=== PATIENT | female | born 1950 | race Caucasian/White ===

== ENCOUNTER → 2024-05-16 12:08 | Outpatient (REF) | payer OTHER, SELFPAY | LOC: RAD 12:08 | PROVIDERS: ATTENDING PHYSICIAN Internal Medicine Rheumatology; FAMILY PHYSICIAN Family Medicine | DX: M47.816 Spondylosis without myelopathy or radiculopathy, lumbar region (principal); M81.0 Age-related osteoporosis without current pathological fracture | CPT/HCPCS: 72110; 73522 ==

== ENCOUNTER 2024-06-04 11:12 | Outpatient (RCR) | payer OTHER, SELFPAY | END 2024-06-04 23:59 | disposition home or self-care (01) | LOC: RPT 11:12 | PROVIDERS: ATTENDING PHYSICIAN Internal Medicine Rheumatology; FAMILY PHYSICIAN Family Medicine | DX: M47.816 Spondylosis without myelopathy or radiculopathy, lumbar region (principal); Z73.6 Limitation of activities due to disability | CPT/HCPCS: 97110; 97162; 97530 ==

== ENCOUNTER → 2024-06-06 10:42 | Outpatient (REF) | payer OTHER, SELFPAY | LOC: RAD 10:42 | PROVIDERS: ATTENDING PHYSICIAN Internal Medicine Rheumatology; FAMILY PHYSICIAN Family Medicine | DX: M81.0 Age-related osteoporosis without current pathological fracture (principal) | CPT/HCPCS: 77080 ==

== ENCOUNTER 2024-12-02 04:10 | Emergency (ER) | payer OTHER, SELFPAY ==
[2024-12-02 04:18] VITALS: BP 164/98
[2024-12-02 05:14] LABS: % Basophils 0.5 % (0-2); % Eosinophils 2.9 % (0-6); % Lymphocytes 50.1 % (20.5-51.1); % Monocytes 10.5 % (1.7-9.3); Absolute Eosinophils 0.1 10^3/uL (0-0.7); Absolute Lymphocytes 2.1 10^3/uL (1.2-3.4); Absolute Monocytes 0.4 10^3/uL (0.1-0.6); Absolute Neutrophils 1.5 10^3/uL (1.4-6.5); Hematocrit 39.6 % (37.0-47.0); Hemoglobin 13.1 g/dL (12.0-16.0); Mean Corp Hgb Conc. 33.1 g/dL (33.0-37.0); Mean Corpuscular Hgb 29.4 pg (27.0-31.0); Mean Platelet Volume 9.9 fL (7.4-10.4); Nucleated Red Blood Cells % 0 %; Platelet Count 205 10^3/uL (130-400); Red Blood Cell Count 4.45 10^6/uL (4.20-5.40); Red Cell Dist. Width 12.6 % (11.5-14.5); White Blood Cell Count 4.1 10^3/uL (4.8-10.8)
[2024-12-02 05:23] LABS: ALT (SGPT) 21 U/L (0-35); AST (SGOT) 21 U/L (14-36); Albumin 4.2 g/dl (3.5-5.0); Alkaline Phosphatase 70 U/L (38-126); Blood Urea Nitrogen 23 mg/dl (7-17); Calcium 9.5 mg/dl (8.4-10.2); Carbon Dioxide 30 mmol/L (22-30); Chloride 102 mmol/L (98-107); Glucose 102 mg/dl (70-99); Potassium 4.2 mmol/L (3.5-5.1); Sodium 139 mmol/L (135-145); Total Bilirubin 0.6 mg/dl (0.2-1.3); Total Protein 6.7 g/dl (6.3-8.2); eGFR > 60.00
[2024-12-02 05:59] VITALS: BP 148/74
[2024-12-02 06:13] LABS: TSH 2.58 uIU/ml (0.47-4.68)
== END 2024-12-02 06:00 ==
LOC: EMR 04:10
PROVIDERS: Emergency Medicine; FAMILY PHYSICIAN Family Medicine
DX: R03.0 Elevated blood-pressure reading, without diagnosis of hypertension (principal)
CPT/HCPCS: 80053; 84443; 84484; 85025; 93005

== ENCOUNTER 2024-12-02 21:27 | Emergency (ER) | payer OTHER, SELFPAY ==
[2024-12-02 22:25] LABS: % Basophils 0.7 % (0-2); % Eosinophils 1.6 % (0-6); % Immature Granulocytes 0.2 % (0-0.5); % Lymphocytes 43.3 % (20.5-51.1); % Monocytes 9.7 % (1.7-9.3); % Neutrophils 44.5 % (42.2-75.2); Absolute Eosinophils 0.1 10^3/uL (0-0.7); Absolute Lymphocytes 2.4 10^3/uL (1.2-3.4); Absolute Monocytes 0.5 10^3/uL (0.1-0.6); Absolute Neutrophils 2.5 10^3/uL (1.4-6.5); Hematocrit 40.7 % (37.0-47.0); Hemoglobin 13.5 g/dL (12.0-16.0); Mean Corp Hgb Conc. 33.2 g/dL (33.0-37.0); Mean Corpuscular Hgb 29.3 pg (27.0-31.0); Mean Corpuscular Volume 88.3 fL (81.0-99.0); Mean Platelet Volume 9.6 fL (7.4-10.4); Nucleated Red Blood Cells % 0 %; Platelet Count 214 10^3/uL (130-400); Red Blood Cell Count 4.61 10^6/uL (4.20-5.40); Red Cell Dist. Width 12.7 % (11.5-14.5); White Blood Cell Count 5.6 10^3/uL (4.8-10.8)
[2024-12-02 22:28] VITALS: BP 183/98
[2024-12-02 22:45] LABS: ALT (SGPT) 22 U/L (0-35); AST (SGOT) 24 U/L (14-36); Albumin 4.6 g/dl (3.5-5.0); Alkaline Phosphatase 69 U/L (38-126); Blood Urea Nitrogen 17 mg/dl (7-17); Calcium 9.8 mg/dl (8.4-10.2); Carbon Dioxide 26 mmol/L (22-30); Chloride 101 mmol/L (98-107); Glucose 115 mg/dl (70-99); Potassium 3.6 mmol/L (3.5-5.1); Sodium 135 mmol/L (135-145); Total Bilirubin 0.5 mg/dl (0.2-1.3); Total Protein 7.2 g/dl (6.3-8.2); eGFR > 60.00
[2024-12-02 22:50] LABS: Troponin I < 0.012 ng/ml
[2024-12-03 00:32] VITALS: BMI 19.3
[2024-12-03 00:57] VITALS: BP 188/93
[2024-12-03 01:00] VITALS: BP 173/82
--- NOTE | 2024-12-03 01:00 | ED.GENMED ---
History of Present Illness
General
Chief Complaint: Blood Pressure Problem
Source: patient
Time Seen by Provider: 12/03/24 00:19
Nursing documentation reviewed up to this point in time: agreed with
History of Present Illness
History of Present Illness:
This is a 74-year-old female presents to the emergency department with hypertension. She states that last evening she awakened and checked her blood pressure after feeling anxious. She found it to be elevated. She spoke with her doctor today who
advised her to come back to the emergency department if her blood pressure was over 200. She returns tonight because of elevated blood pressure. She states that throughout the day she 'kept checking her blood pressure'. She wants to creep up so
she felt anxious throughout the day. Denies headache, chest pain, shortness of breath, abdominal pain. Denies confusion or syncope. Reports no symptoms other than anxiety about her blood pressure.
Past History
Past History
ED Past Medical History: Cancer (Breast cancer ), HTN, Hypercholesterolemia and Other (Vasovagal syncope)
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
Social History
Tobacco: Non-smoker
Alcohol: None
Drug: None
Personal: Single
Living: alone
Employment: Not employed
Family History
Family History: Negative Sudden
Review of Systems
Review of Systems
Allergies reviewed?: Yes
All Other Systems: ROS reviewed and negative except as documented in HPI and ROS
Constitutional: Reports no symptoms
EENT: Reports no symptoms
Respiratory: Reports no symptoms
Cardiac: Reports no symptoms
ABD/GI: Reports no symptoms
: Reports no symptoms
Musculoskeletal: Reports no symptoms
Skin: Reports no symptoms
Neurological: Reports no symptoms
Endocrine: Reports no symptoms
Hematologic/Lymphatic: Reports no symptoms
Psychiatric: Reports anxiety
Phy Exam
General Physical Exam
General Presentation: well appearing and no apparent distress
General Skin: warm and dry
General Habitus: normal
General Mental: alert
General Hydration: appears well hydrated
ENT Exam
ENT Exam: EOMI, pharynx normal, neck supple and normocephalic
Eye Exam
Eye Exam: PERRL, cornea clear and conjunctiva normal
Cardiovascular Exam
Cardiovascular Exam: regular rate/rhythm, no edema, no murmur (No murmurs rubs or gallops.) and normal peripheral pulses
Pulmonary Exam
Pulmonary Exam: lungs clear, no respiratory distress, no rales, no crackles, no rhonchi, no stridor, no wheezing and no cough
Gastrointestinal Exam
Gastrointestinal Exam: normal bowel sounds, non tender, soft, no organomegaly, no pulsatile mass, non distended and no cva tenderness (No CVA tenderness bilaterally.)
Neurological Exam
Neurological Exam: alert, oriented x3, no motor deficits and speech normal
Musculoskeletal Exam
Musculoskeletal Exam: full ROM and no edema
Skin Exam
Skin Exam: normal color, warm/dry, no rash and no petechia
Psychiatric Exam
Psychiatric Exam: normal mood/affect
Course
Orders/Labs/Results
Orders:
Orders
12/02/24 21:30
ECG [Electrocardiogram (*1)] Urgent
Reason for Study: Hypertension, Benign
EKG- Treatment ONCE
12/02/24 22:19
Complete Blood Count/With Diff Urgent
Comprehensive Metabolic Panel Urgent
Troponin I Urgent
12/03/24 01:00
Metoprolol [Lopressor] 25 mg PO NOW STA
12/03/24 01:43
Urinalysis Reflex To Culture Urgent
Date Specimen was Collected: 12/03/24
Time Specimen was Collected: 01:38
Abnormal Lab Results
12/02/24
22:19
Monocytes % 9.7 H %
(1.7-9.3)
Glucose 115 H mg/dl
(70-99)
12/02/24 22:19
12/02/24 22:19
Vital Signs
Initial and Last Documented VS:
Initial Vital Signs
Temp Pulse BP Pulse Ox
98.3 F 77 183/98 100
12/02/24 22:28 12/02/24 22:28 12/02/24 22:28 12/02/24 22:28
Last Documented Vital Signs
Temp Pulse BP Pulse Ox
98.3 F 72 173/82 100
12/02/24 22:28 12/03/24 01:03 12/03/24 01:03 12/03/24 01:45
*Critical Care Note
Total Time (30-74mins, 75-104mins- exclusive of procedures): Not Applicable
Update Note
Update Note:
Patient initially agitated because she was here this morning and waited 2 hours then left because of the wait. She stated that she expected to come right back but again had to wait for a bed. Initial encounter was too diffuse some of her anger.
ED Attending Note
-
Portions of this chart may have been created with voice recognition software.� Occasional wrong word or��sound alike� substitutions may have occurred due to the inherent limitations of voice recognition software.
Discharge Plan
Departure
Patient Disposition: Home (Routine Discharge)
Date of Disposition: 12/03/24
Time of Disposition: 02:00
Patient with high blood pressure during this ER visit?: Yes
Discharge Problem:
Hypertension
Instructions: High Blood Pressure (DC), Anxiety, Adult (DC), BLOOD PRESSURE
Prescriptions:
New
metoprolol succinate [Toprol XL] 25 mg tablet extended release 24 hr
25 mg PO DAILY Qty: 10 0RF
No Action
atorvastatin 10 mg Tablet
10 mg PO DAILY
losartan 25 mg Tablet
36.5 mg PO DAILY
Referrals:
Mk Tony DO [Family Provider] - Next open appointment
Activity Restrictions/Additional Instructions:
It was a pleasure meeting you and taking part in your care. We hope for your continued healing and wellness.
Please read discharge instructions in their entirety. However, they are for general education and may not describe your exact diagnosis at discharge. Information on your ER visit and medical conditions were discussed with you along with appropriate
follow up information...
If indicated, please take your medications as instructed and indicated on discharge paperwork.
Please schedule a follow up appointment as directed. Call to schedule an appointment
Please return to the emergency department with ANY change in, persisting, or worsening of symptoms. If any of your symptoms do not improve, or persist, or become more severe within 6-12 hours, please return to the emergency department for further
care.
Please return to the emergency department if you develop a headache, neck pain/stiffness, fever greater than 100.4F, chest pain, shortness of breath, persistent nausea, vomiting, slurred speech, difficulty walking, numbness/tingling, weakness, signs
of infection or any other symptoms that are worrisome to you.
If you have any questions or concerns please do not hesitate to call the Hospital at or E-mail me directly at [email or web address]
Interventions
Interventions:
*Risk Screen - Suicide Last Done: 12/02/24 21:30
*General Assessment Last Done: 12/03/24 00:36
*Neglect/Abuse Screening Last Done: 12/02/24 21:30
*ED COVID-19 Vaccine History Last Done: 12/03/24 00:36
ED- Cardiac Assessment Last Done: 12/03/24 00:32
ED- Neurological Assessment Last Done: 12/03/24 00:32
ED-Psychological Assessment Last Done: 12/03/24 00:32
ED- Pulmonary Assessment Last Done: 12/03/24 00:32
Discharge Date and Time
Print Language: CYPRIOT
[2024-12-03] MEDS: LOPRESSOR 25 MG PO (01:03)
[2024-12-03 01:51] LABS: Urine Albumin Negative (Neg - Trace); Urine Bilirubin Negative (Negative); Urine Character Clear (Clear); Urine Color Yellow; Urine Glucose Negative (Negative); Urine Ketone Negative (Negative); Urine Leukocyte Negative (Negative); Urine Nitrite Negative (Negative); Urine Occult Blood Negative (Negative); Urine Specific Gravity 1.005 (<1.030); Urine Urobilinogen Negative (Neg - 1+)
[2024-12-03 02:01] VITALS: BP 142/81
== END 2024-12-03 02:51 | disposition home or self-care (01) ==
LOC: EMR 21:27
PROVIDERS: Emergency Medicine; EMERGENCY PHYSICIAN Student in an Organized Health Care Education/Training Program; FAMILY PHYSICIAN Family Medicine
DX: I10 Essential (primary) hypertension (principal); E78.00 Pure hypercholesterolemia, unspecified; Z85.3 Personal history of malignant neoplasm of breast
CPT/HCPCS: 80053; 81003; 84484; 85025; 93005; 99282

== ENCOUNTER 2025-05-28 10:29 | Emergency (ER) | payer OTHER, SELFPAY ==
[2025-05-28 10:31] VITALS: BP 212/104
[2025-05-28 10:33] VITALS: BP 192/115
[2025-05-28 10:48] VITALS: BP 159/100
[2025-05-28 11:00] VITALS: BP 187/84
--- NOTE | 2025-05-28 11:04 | ED.GENMED ---
History of Present Illness
General
Chief Complaint: Blood Pressure Problem
Time Seen by Provider: 05/28/25 10:48
History of Present Illness
History of Present Illness:
75-year-old female presents to the ER for evaluation of elevated blood pressure. Patient states that she saw her primary rn icu last week and was found to have hypertension in the office. She was given prescription for 25 mg hydralazine 3
times daily which she has not yet initiated as she was busy caring for a sick family member. Patient states that she is now back at her home and had planned on obtaining tests that were ordered by Dr. Mcintosh today, however her blood pressure
was very elevated at home causing her to come to the ER for evaluation. Patient denies chest pain, shortness of breath, headache. She has been eating and drinking without difficulty. She denies any syncope or trauma. She admits to feeling
'spacey' but this has been an ongoing issue for months. She denies palpitations. She did take her other blood pressure medications in the past few days as previously prescribed.
Past History
Past History
ED Past Medical History: Cancer (Breast cancer ), HTN, Hypercholesterolemia and Other (Vasovagal syncope)
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
Social History
Tobacco: Non-smoker
Alcohol: None
Drug: None
Personal: Single
Living: alone
Employment: Not employed
Family History
Family History: Negative Sudden
Review of Systems
Review of Systems
Allergies reviewed?: Yes
Phy Exam
Physical Exam
Physical Exam:
Patient is awake, alert, appears no acute distress, head is normocephalic atraumatic, PERRL, EOMI, speech is clear, mucous membranes moist, heart regular rate and rhythm without murmurs or ectopy, lungs are clear to auscultation without wheezes
rales or rhonchi, no JVD, no peripheral edema, GCS is 15, normal mood
Course
Orders/Labs/Results
Orders:
Orders
05/28/25 10:50
Electrocardiogram (*1) Urgent
Reason for Study: Hypertension, Benign
EKG- Treatment ONCE
05/28/25 11:16
Aldosterone/Renin Act Ratio [S] Routine
Comment: please also send result to Dr Lindy Mcintosh
Basic Metabolic Panel Urgent
Complete Blood Count/With Diff Urgent
Abnormal Lab Results
05/28/25
11:16
WBC 3.8 L 10^3/uL
(4.8-10.8)
Glucose 109 H mg/dl
(70-99)
05/28/25 11:16
05/28/25 11:16
No significant lab abnormality noted. Aldosterone/renin ratio pending
Vital Signs
Initial and Last Documented VS:
Initial Vital Signs
Temp Pulse Resp BP Pulse Ox
97.8 F 77 16 212/104 100
05/28/25 10:31 05/28/25 10:31 05/28/25 10:31 05/28/25 10:31 05/28/25 10:31
Last Documented Vital Signs
Temp Pulse Resp BP Pulse Ox
97.9 F 71 18 169/104 97
05/28/25 12:54 05/28/25 12:54 05/28/25 12:54 05/28/25 12:54 05/28/25 12:54
Comment
Comment:
Blood pressure improved spontaneously since triage, was 159/100 during patient interaction. I discussed with patient overall benign appearance and diagnosis of asymptomatic hypertension at time of my evaluation. She has no red flag warning
symptoms and no evidence for congestive heart failure. Given patient had been given prescription to have lab work done, will draw aldosterone renin ratio along with CBC and BMP. Patient agrees with this plan and likely plan for discharge after
test results available. Patient will take her prescribed 25 mg hydralazine tablet now.
MDM/Problems Addressed
Differential Diagnosis Includes:
Differential diagnosis to consider but not limited to asymptomatic hypertension, acute kidney failure, medical noncompliance along with other etiologies considered
Chronic conditions affecting care:
Hypertension
*Pulse Oximetry
SaO2: 100
Oxygen Mode of Delivery: Room air
Patient hypoxic: no
*EKG
Interpreted by ED Provider?: Yes (I dependently viewed and interpreted twelve-lead EKG showing normal sinus rhythm, rate 60, left axis deviation, incomplete right bundle branch block, no ST elevation, this is a nonspecific EKG without evidence for
acute ischemia, similar to prior 12/02/2024)
*[facility] Interpretation
Rate: normal
Interpretation: normal
Rhythm: sinus
*Critical Care Note
Total Time (30-74mins, 75-104mins- exclusive of procedures): Not Applicable
Update Note
Update Note:
Patient resting comfortably throughout time in the emergency department. She has no red flag symptoms. I discussed with patient need to take hydralazine as prescribed and to continue with plan for outpatient follow-up with her rn icu. She
felt comfortable plan for discharge and had no questions prior to the department.
ED Attending Note
-
Portions of this chart may have been created with voice recognition software.� Occasional wrong word or��sound alike� substitutions may have occurred due to the inherent limitations of voice recognition software.
Discharge Plan
Departure
Patient Disposition: Home (Routine Discharge)
Date of Disposition: 05/28/25
Time of Disposition: 12:20
Patient with high blood pressure during this ER visit?: Yes
Discharge Problem:
Hypertension
Instructions: High Blood Pressure (DC)
Prescriptions:
No Action
atorvastatin 10 mg Tablet
10 mg PO DAILY
losartan 25 mg Tablet
36.5 mg PO DAILY
metoprolol succinate [Toprol XL] 25 mg tablet extended release 24 hr
25 mg PO DAILY Qty: 10 0RF
Referrals:
Kenya May MD [Family Provider, Family Practice]
Activity Restrictions/Additional Instructions:
Please continue to take hydralazine as previously prescribed in addition to your other medications. Please continue with plan to obtain additional outpatient testing that had been prescribed by Dr. Mcintosh-renal artery ultrasound and
echocardiogram. Please follow-up with Dr. Mcintosh for additional blood test result that had been performed here today (Aldosterone renin ratio). Return to the ER for any concerns
Interventions
Interventions:
*Risk Screen - Suicide Last Done: 05/28/25 10:31
*General Assessment Last Done: 05/28/25 12:54
*Neglect/Abuse Screening Last Done: 05/28/25 10:31
*ED- Fall Risk Assessment Last Done: 05/28/25 10:31
*ED COVID-19 Vaccine History Last Done: 05/28/25 12:57
*Nursing Disposition Last Done: 05/28/25 12:54
ED- Cardiac Assessment Last Done: 05/28/25 11:21
ED- Neurological Assessment Last Done: 05/28/25 11:21
ED- Pulmonary Assessment Last Done: 05/28/25 11:21
Discharge Date and Time
Discharge Date/Time: 05/28/25 12:57
Print Language: SPANISH
[2025-05-28 11:17] VITALS: BMI 19.4
[2025-05-28 11:40] LABS: Hematocrit 38.2 % (37.0-47.0); Hemoglobin 12.7 g/dL (12.0-16.0); Mean Corp Hgb Conc. 33.2 g/dL (33.0-37.0); Mean Corpuscular Volume 88.4 fL (81.0-99.0); Nucleated Red Blood Cells % 0 %; Platelet Count 185 10^3/uL (130-400); Red Cell Dist. Width 12.5 % (11.5-14.5)
[2025-05-28 11:54] LABS: Blood Urea Nitrogen 13 mg/dl (7-17); Calcium 9.8 mg/dl (8.4-10.2); Carbon Dioxide 28 mmol/L (22-30); Chloride 106 mmol/L (98-107); Estimated Creatinine Clearance 71 ml/min; Glucose 109 mg/dl (70-99); Potassium 3.8 mmol/L (3.5-5.1); Sodium 140 mmol/L (135-145); eGFR > 60.00
[2025-05-28 12:00] VITALS: BP 173/76
[2025-05-28 12:54] VITALS: BP 169/104
== END 2025-05-28 12:57 | disposition home or self-care (01) ==
LOC: EMR 10:29
PROVIDERS: EMERGENCY PHYSICIAN Emergency Medicine; FAMILY PHYSICIAN Family Medicine
DX: I10 Essential (primary) hypertension (principal); E78.00 Pure hypercholesterolemia, unspecified; Z79.899 Other long term (current) drug therapy; Z85.3 Personal history of malignant neoplasm of breast
CPT/HCPCS: 99283; 80048; 82088; 84244; 85025; 93005

== ENCOUNTER → 2025-06-05 13:02 | Outpatient (REF) | payer OTHER, SELFPAY | LOC: RAD 13:02 | PROVIDERS: ATTENDING PHYSICIAN Internal Medicine Cardiovascular Disease; FAMILY PHYSICIAN Family Medicine | DX: I10 Essential (primary) hypertension (principal) | CPT/HCPCS: 93975 ==

== ENCOUNTER → 2025-06-09 08:30 | Outpatient (REF) | payer OTHER, SELFPAY | LOC: RCS 08:30 | PROVIDERS: ATTENDING PHYSICIAN Internal Medicine Cardiovascular Disease; FAMILY PHYSICIAN Family Medicine | DX: R09.89 Other specified symptoms and signs involving the circulatory and respiratory systems (principal); I10 Essential (primary) hypertension; I35.1 Nonrheumatic aortic (valve) insufficiency | CPT/HCPCS: 93306 ==

== ENCOUNTER → 2025-06-16 14:04 | Outpatient (REF) | payer OTHER, SELFPAY | LOC: RAD 14:04 | PROVIDERS: ATTENDING PHYSICIAN Internal Medicine Cardiovascular Disease; FAMILY PHYSICIAN Family Medicine | DX: I70.1 Atherosclerosis of renal artery (principal) | CPT/HCPCS: 74175; Q9967 ==

== ENCOUNTER → 2025-09-16 15:26 | Outpatient (REF) | payer OTHER, SELFPAY | LOC: RAD 15:26 | PROVIDERS: ATTENDING PHYSICIAN Internal Medicine Rheumatology; FAMILY PHYSICIAN Family Medicine | DX: M16.10 Unilateral primary osteoarthritis, unspecified hip (principal) | CPT/HCPCS: 73522 ==